=== PATIENT | male | born 1965 | race Caucasian/White ===

== ENCOUNTER 2018-01-01 21:16 | Observation (INO) | payer BC, OTHER ==
[~2018-01-01] VITALS: Ht 177.8 cm; Wt 67.1 kg
[2018-01-01] MEDS ORDERED: ATOR40TA24 PO (21:30)
[2018-01-01] MEDS ORDERED: HYDR-2966 PO (21:30)
[2018-01-01] MEDS ORDERED: ASPI-1471 PO (21:30)
[2018-01-01] MEDS ORDERED: CAR6.25 PO (21:30)
--- NOTE | 2018-01-01 21:36 | ER Report ---
History and Physical Time Seen By MD: 21:36 Hx. of Stated Complaint: SUDDEN ONSET OF UPPER RIGHT ABDOMINAL PAIN. SHOOTS AROUND TO HIS BACKSODE. FEELS HARD WHEN HE PUSHES ON IT HPI/ROS CHIEF COMPLAINT: right upper quadrant abdominal pain HISTORY OF PRESENT ILLNESS: This is a 52 year old male. He has right upper quadrant abdominal pain. sudden onset tonight. Pain worsens with pressure, and with deep breaths. Sometimes with deep breaths he feels it in his right flank. No dysuria or problems with urination. No other abdominal pain. No fever or chills noted. Mild nausea, no vomiting. No history of liver or gallbladder problems. He does have history of coronary artery disease. Allergies: Coded Allergies: No Known Drug Allergies (Verified , 01/01/18) Home Meds Reported Medications Aspirin (ASPIRIN) 325 Mg Tablet, 325 MG PO Q4-6H PRN for PAIN, TAB 01/02/18 Atorvastatin Calcium (LIPITOR) 40 Mg Tablet, 2 TAB PO QDAY, TAB 01/01/18 Carvedilol (CARVEDILOL) 6.25 Mg Tab, 6.25 MG PO BID, TAB 01/01/18 Discontinued Reported Medications Hydrochlorothiazide (HYDROCHLOROTHIAZIDE) 25 Mg Tablet, 1 TAB PO QDAY, TAB 01/01/18 Aspirin (ASPIR 81) 81 Mg Tablet.dr, 81 MG PO QDAY, TAB 01/01/18 [None] No Conflict Check, 0 Refills 09/01/08 Reviewed Nurses Notes: Yes Hx Substance Use Disorder: No Hx Alcohol Use: Yes (SOCIALLY) Constitutional Vital Sign - Last 24 Hours 01/01/18 01/01/18 01/01/18 01/01/18 21:24 21:26 21:30 21:31 Temp 97.4 Pulse 62 76 Resp 14 B/P (MAP) 170/119 170/119 (136) 181/129 (146) Pulse Ox 98 99 O2 Delivery Room Air 01/01/18 01/01/18 01/01/18 01/01/18 21:32 21:46 22:00 22:01 Pulse 65 64 B/P (MAP) 169/111 (130) 136/94 (108) Pulse Ox 99 91 01/01/18 01/01/18 01/01/18 01/01/18 22:16 22:30 22:31 22:46 Pulse 73 58 63 B/P (MAP) 126/90 (102) Pulse Ox 99 98 98 01/01/18 01/01/18 01/01/18 01/01/18 22:51 23:00 23:21 23:30 Pulse 63 59 B/P (MAP) 124/89 (101) 115/89 (98) Pulse Ox 98 97 01/01/18 01/02/18 01/02/18 01/02/18 23:51 00:00 00:05 00:30 Pulse 64 61 B/P (MAP) 123/88 (100) 119/89 (99) Pulse Ox 98 98 Physical Exam General Appearance: The patient is alert. Some distress with pressure in ruq, but otherwise no distress. Eyes: Pupils are equal, round. No pallor, injection or icterus. ENT: Mucous membranes are moist. Normal oral mucosa. Normal posterior oropharynx. Respiratory: Lungs are clear to auscultation. Cardiovascular: Regular rate and rhythm. No murmurs, gallops or rubs. Normal capillary refill. Gastrointestinal: Abdomen is very tender in the ruq with positive Torres sign. Nondistended. Guarding. Normal active bowel sounds. No costovertebral angle tenderness with percussion. Neurological: Alert and oriented x3. Skin: Warm and dry. No rashes. Musculoskeletal: No tenderness in palpation of the back and spine. DIFFERENTIAL DIAGNOSIS: After history and physical exam, differential diagnosis was considered for abdominal pain including but not limited to appendicitis, cholecystitis, colitis and urinary tract infection. Medical Decision Making Data Points Result Diagram: 01/01/18213601/01/182136 Laboratory Hematology Test 01/01/18 21:37 Red Blood Count 5.81 M/uL (4.00-5.60) Mean Corpuscular Volume 102.9 fL (80.0-96.0) Mean Corpuscular Hemoglobin 35.9 pg (26.0-33.0) Mean Corpuscular Hemoglobin Concent 34.9 g/dL (32.0-36.0) Red Cell Distribution Width 14.9 % (11.5-14.5) Mean Platelet Volume 9.6 fL (7.2-11.1) Neutrophils (%) (Auto) 63.0 % (39.4-72.5) Lymphocytes (%) (Auto) 25.0 % (17.6-49.6) Monocytes (%) (Auto) 8.7 % (4.1-12.4) Eosinophils (%) (Auto) 2.3 % (0.4-6.7) Basophils (%) (Auto) 1.0 % (0.3-1.4) Nucleated RBC Relative Count (auto) 0.1 /100WBC Neutrophils # (Auto) 5.2 K/uL (2.0-7.4) Lymphocytes # (Auto) 2.1 K/uL (1.3-3.6) Monocytes # (Auto) 0.7 K/uL (0.3-1.0) Eosinophils # (Auto) 0.2 K/uL (0.0-0.5) Basophils # (Auto) 0.1 K/uL (0.0-0.1) Nucleated RBC Absolute Count (auto) 0.01 K/uL Urine Color Yellow Urine Clarity Clear Urine pH 5.0 pH (4.8-9.5) Urine Specific [place] 1.018 Urine Protein Negative mg/dL (NEGATIVE) Urine Glucose (UA) Negative mg/dL (NEGATIVE) Urine Ketones Negative mg/dL (NEGATIVE) Urine Blood Negative (NEGATIVE) Urine Nitrite Negative (NEGATIVE) Urine Bilirubin Negative (NEGATIVE) Urine Urobilinogen 4.0 mg/dL (0.2-1.9) Urine Leukocyte Esterase Negative (NEGATIVE) Urine RBC None /HPF (0-2/HPF) Urine WBC <1 /HPF (0-5/HPF) Urine Squamous Epithelial Cells Few /LPF (</=FEW) Urine Transitional Epithelial Cells Few /LPF (NONE-FEW) Urine Calcium Oxalate Crystals Few /HPF (NONE) Urine Bacteria Negative /HPF (NONE-FEW) Urine Hyaline Casts Few /LPF (NONE-FEW) Urine Mucus None /HPF (NONE-FEW) Sodium Level 145 mmol/L (137-145) Potassium Level 3.2 mmol/L (3.5-5.0) Chloride Level 110 mmol/L (98-107) Carbon Dioxide Level 25 mmol/L (22-30) Blood Urea Nitrogen 8 mg/dl (9-21) Creatinine 0.60 mg/dl (0.66-1.25) Glomerular Filtration Rate Calc > 60.0 Random Glucose 114 mg/dl (75-110) Calcium Level 8.3 mg/dl (8.4-10.2) Total Bilirubin 0.5 mg/dl (0.2-1.3) Aspartate Amino Transf (AST/SGOT) 70 U/L (0-35) Alanine Aminotransferase (ALT/SGPT) 46 U/L (0-56) Alkaline Phosphatase 89 U/L (0-126) Troponin I < 0.012 ng/ml C-Reactive Protein 0.9 mg/dl (<1.0) Total Protein 7.2 g/dl (6.3-8.2) Albumin 3.8 g/dl (3.5-5.0) Amylase Level 111 U/L (0-110) Lipase 250 U/L (23-300) Chemistry Test 01/01/18 21:37 White Blood Count 8.3 k/uL (4.5-11.0) Red Blood Count 5.81 M/uL (4.00-5.60) Hemoglobin 20.9 g/dL (14.0-18.0) Hematocrit 59.8 % (42.0-52.0) Mean Corpuscular Volume 102.9 fL (80.0-96.0) Mean Corpuscular Hemoglobin 35.9 pg (26.0-33.0) Mean Corpuscular Hemoglobin Concent 34.9 g/dL (32.0-36.0) Red Cell Distribution Width 14.9 % (11.5-14.5) Platelet Count 112 K/uL (150-450) Mean Platelet Volume 9.6 fL (7.2-11.1) Neutrophils (%) (Auto) 63.0 % (39.4-72.5) Lymphocytes (%) (Auto) 25.0 % (17.6-49.6) Monocytes (%) (Auto) 8.7 % (4.1-12.4) Eosinophils (%) (Auto) 2.3 % (0.4-6.7) Basophils (%) (Auto) 1.0 % (0.3-1.4) Nucleated RBC Relative Count (auto) 0.1 /100WBC Neutrophils # (Auto) 5.2 K/uL (2.0-7.4) Lymphocytes # (Auto) 2.1 K/uL (1.3-3.6) Monocytes # (Auto) 0.7 K/uL (0.3-1.0) Eosinophils # (Auto) 0.2 K/uL (0.0-0.5) Basophils # (Auto) 0.1 K/uL (0.0-0.1) Nucleated RBC Absolute Count (auto) 0.01 K/uL Urine Color Yellow Urine Clarity Clear Urine pH 5.0 pH (4.8-9.5) Urine Specific [place] 1.018 Urine Protein Negative mg/dL (NEGATIVE) Urine Glucose (UA) Negative mg/dL (NEGATIVE) Urine Ketones Negative mg/dL (NEGATIVE) Urine Blood Negative (NEGATIVE) Urine Nitrite Negative (NEGATIVE) Urine Bilirubin Negative (NEGATIVE) Urine Urobilinogen 4.0 mg/dL (0.2-1.9) Urine Leukocyte Esterase Negative (NEGATIVE) Urine RBC None /HPF (0-2/HPF) Urine WBC <1 /HPF (0-5/HPF) Urine Squamous Epithelial Cells Few /LPF (</=FEW) Urine Transitional Epithelial Cells Few /LPF (NONE-FEW) Urine Calcium Oxalate Crystals Few /HPF (NONE) Urine Bacteria Negative /HPF (NONE-FEW) Urine Hyaline Casts Few /LPF (NONE-FEW) Urine Mucus None /HPF (NONE-FEW) Glomerular Filtration Rate Calc > 60.0 Calcium Level 8.3 mg/dl (8.4-10.2) Total Bilirubin 0.5 mg/dl (0.2-1.3) Aspartate Amino Transf (AST/SGOT) 70 U/L (0-35) Alanine Aminotransferase (ALT/SGPT) 46 U/L (0-56) Alkaline Phosphatase 89 U/L (0-126) Troponin I < 0.012 ng/ml C-Reactive Protein 0.9 mg/dl (<1.0) Total Protein 7.2 g/dl (6.3-8.2) Albumin 3.8 g/dl (3.5-5.0) Amylase Level 111 U/L (0-110) Lipase 250 U/L (23-300) Urinalysis Test 01/01/18 21:37 Urine Color Yellow Urine Clarity Clear Urine pH 5.0 pH (4.8-9.5) Urine Specific [place] 1.018 Urine Protein Negative mg/dL (NEGATIVE) Urine Glucose (UA) Negative mg/dL (NEGATIVE) Urine Ketones Negative mg/dL (NEGATIVE) Urine Blood Negative (NEGATIVE) Urine Nitrite Negative (NEGATIVE) Urine Bilirubin Negative (NEGATIVE) Urine Urobilinogen 4.0 mg/dL (0.2-1.9) Urine Leukocyte Esterase Negative (NEGATIVE) Urine RBC None /HPF (0-2/HPF) Urine WBC <1 /HPF (0-5/HPF) Urine Squamous Epithelial Cells Few /LPF (</=FEW) Urine Transitional Epithelial Cells Few /LPF (NONE-FEW) Urine Calcium Oxalate Crystals Few /HPF (NONE) Urine Bacteria Negative /HPF (NONE-FEW) Urine Hyaline Casts Few /LPF (NONE-FEW) Urine Mucus None /HPF (NONE-FEW) EKG/Imaging EKG Interpretation 12 lead EKG: Rhythm: Sinus rhythm, occasional PVC, rate 63 [place]: normal QRS: Incomplete right bundle, left anterior fascicular. Q waves in inferior leads consistent with old inferior infarct ST segments: T waves flattening, no ST elevation or depression noted Imaging AP CHEST 01/01/2018 9:44 PM. INDICATION: Right upper quadrant abdominal pain. COMPARISON: 09/01/2008. FINDINGS: Lungs are well-expanded. There is no consolidation. No pleural effusion or pneumothorax. Heart size is normal. Median sternotomy closure and multiple surgical clips over the cardiomediastinal silhouette likely related to CABG. Imaged upper abdomen is unremarkable. IMPRESSION: No acute abnormality. Report Dictated By: Saúl Cassidy MD at 01/01/2018 10:34 PM EXAMINATION: LIMITED ABDOMINAL ULTRASOUND DATE: 01/01/2018 10:45 PM INDICATION: Right upper quadrant abdominal pain. TECHNIQUE: Ryan scale, color and pulsed Doppler ultrasound images of the right upper quadrant were obtained. COMPARISON: Same-day chest radiograph. FINDINGS: Pancreas: The pancreas is suboptimally visualized in the tail. There is no significant abnormality in the visualized portion. Aorta and IVC: The imaged abdominal aorta and IVC are patent. Liver: The liver shows diffusely mildly increased echogenicity with coarsened echotexture. The right hepatic lobe measures 18 cm craniocaudal, which is mildly enlarged. There is no definite focal lesion in the liver. The main portal vein is patent with hepatopedal flow. Bile ducts: The intrahepatic bile ducts are not dilated. The common bile duct measures 5 mm in diameter, which is normal. Gallbladder: The gall bladder is distended contains a level echogenic sludge. There is also an echogenic focus in the gallbladder that appears to be fixed in position and does not demonstrate clear posterior shadowing. Gallbladder wall is not grossly thickened and there is no pericholecystic fluid. Sonographic Torres's sign is reported positive. Kidney: The right kidney measures 11.9 x 5.0 x 4.6 cm. The parenchymal echog enicity and thickness appear within normal range. No focal lesion is demonstrated. No hydronephrosis. Normal low resistance arterial waveform. No ascites. IMPRESSION: 1. Distended gallbladder containing sludge and an echogenic focus that could represent a polyp or biliary sludge. Reported sonographic Torres's sign with no definite gallbladder wall thickening or pericholecystic fluid. Equivocal examination for cholecystitis. Consider HIDA scan if indicated. 2. Consider one year follow-up to assess the stability of potential gallbladder polyp. 3. Mild hepatomegaly and suspected steatosis. Report Dictated By: Saúl Cassidy MD at 01/01/2018 11:45 PM ED Course/Re-evaluation ED Course Labs with a normal white count. Patient is afebrile. Still with right upper quadrant pain but improved with Dilaudid 1 mg IV. Ultrasound obtained and the patient does have sludge with reproducible pain, positive Torres sign. Discussed the case with Dr. Ramírez, patient will be admitted for pain control and discussion regarding surgery tomorrow for cholecystectomy Decision to Disposition Date: Jan 02, 2018 Decision to Disposition Time: 00:11 Depart Departure Latest Vital Signs Vital Signs Date Time Temp Pulse Resp B/P (MAP) Pulse Ox O2 Delivery O2 Flow Rate FiO2 01/02/18 00:30 119/89 (99) 01/02/18 00:05 61 98 01/01/18 21:24 97.4 14 Room Air Impression: Primary Impression: Cholelithiasis Condition: Improved Disposition: Admitted from ER Problem Qualifiers Primary Impression: Cholelithiasis Cholelithiasis location: gallbladder Cholecystitis presence: without cholecystitis Biliary obstruction: without biliary obstruction Qualified Codes: K80.20 - Calculus of gallbladder without cholecystitis without obstruction PANCHO LINDSEY MD Jan 01, 2018 21:36
[2018-01-01] MEDS ORDERED: NS(*) 0.9% 1000 ML BAG 1,000 ML IV ONE (21:44)
[2018-01-01] MEDS ORDERED: HYDROMORPHONE HCL 1 MG/ML SYRINGE IVP ONE (21:45)
[2018-01-01] MEDS ORDERED: ONDANSETRON 4 MG/2 ML VIAL IVP ONE (21:45)
[2018-01-01 21:58] LABS: PLATELET COUNT, AUTOMATED 112 K/uL (150-450)
--- NOTE | 2018-01-01 22:39 | RADIOLOGY IMAGING REPORT ---
FACILITY: [facility] PATIENT NAME: Tarik Garcia : 1965 MR: [id number] V: [id number] EXAM DATE: ORDERING PHYSICIAN: PANCHO LINDSEY TECHNOLOGIST: Location: [facility] [place] Patient: Tarik Garcia : 1965 Visit/Account:[id number] Date of Sevice: 01/01/2018 AP CHEST 01/01/2018 9:44 PM. INDICATION: Right upper quadrant abdominal pain. COMPARISON: 09/01/2008. FINDINGS: Lungs are well-expanded. There is no consolidation. No pleural effusion or pneumothorax. Heart size i s normal. Median sternotomy closure and multiple surgical clips over the cardiomediastinal silhouett e likely related to CABG. Imaged upper abdomen is unremarkable. IMPRESSION: No acute abnormality. Report Dictated By: Saúl Cassidy MD at 01/01/2018 10:34 PM Report E-Signed By: Saúl Cassidy MD at 01/01/2018 10:35 PM WSN:[id number]
--- NOTE | 2018-01-01 22:49 | EKG ---
FACILITY: [facility] PATIENT NAME: ISMA DEVLIN : [id number] MR: [id number] V: [id number] EXAM DATE: ORDERING PHYSICIAN: PANCHO LINDSEY TECHNOLOGIST: LENARD Ricketts Reason : Blood Pressure : / mmHG Vent. Rate : 063 BPM Atrial Rate : 063 BPM P-R Int : 160 ms QRS Dur : 104 ms QT Int : 398 ms P-R-T Axes : 051 -70 066 degrees QTc Int : 407 ms Sinus rhythm with occasional premature ventricular complexes Possible Left atrial enlargement Left axis deviation Possible previous inferior infarct Diffuse T wave flattening/inversion Abnormal ECG No previous ECGs available Confirmed by KVNG PICKENS ([id number]) on 01/02/2018 6:42:36 AM Referred By: Confirmed By:KVNG PICKENS
--- NOTE | 2018-01-01 23:55 | RADIOLOGY IMAGING REPORT ---
FACILITY: [facility] PATIENT NAME: Tarik Garcia : 1965 MR: [id number] V: [id number] EXAM DATE: [id number] ORDERING PHYSICIAN: PANCHO LINDSEY TECHNOLOGIST: Location: [facility] Patient: Tarik Garcia : 1965 Visit/Account:[id number] Date of Sevice: 01/01/2018 EXAMINATION: LIMITED ABDOMINAL ULTRASOUND DATE: 01/01/2018 10:45 PM INDICATION: Right upper quadrant abdominal pain. TECHNIQUE: Ryan scale, color and pulsed Doppler ultrasound images of the right upper quadrant were ob tained. COMPARISON: Same-day chest radiograph. FINDINGS: Pancreas: The pancreas is suboptimally visualized in the tail. There is no significant abnormality in the visualized portion. Aorta and IVC: The imaged abdominal aorta and IVC are patent. Liver: The liver shows diffusely mildly increased echogenicity with coarsened echotexture. The right hepatic lobe measures 18 cm craniocaudal, which is mildly enlarged. There is no definite focal lesion in the liver. The main portal vein is patent with hepatopedal flow. Bile ducts: The intrahepatic bile ducts are not dilated. The common bile duct measures 5 mm in diamet er, which is normal. Gallbladder: The gall bladder is distended contains a level echogenic sludge. There is also an echog enic focus in the gallbladder that appears to be fixed in position and does not demonstrate clear pos terior shadowing. Gallbladder wall is not grossly thickened and there is no pericholecystic fluid. Sonographic Torres's sign is reported positive. Kidney: The right kidney measures 11.9 x 5.0 x 4.6 cm. The parenchymal echogenicity and thickness jaswant ear within normal range. No focal lesion is demonstrated. No hydronephrosis. Normal low resistance a rterial waveform. No ascites. IMPRESSION: 1. Distended gallbladder containing sludge and an echogenic focus that could represent a polyp or bi liary sludge. Reported sonographic Torres's sign with no definite gallbladder wall thickening or per icholecystic fluid. Equivocal examination for cholecystitis. Consider HIDA scan if indicated. 2. Consider one year follow-up to assess the stability of potential gallbladder polyp. 3. Mild hepatomegaly and suspected steatosis. Report Dictated By: Saúl Cassidy MD at 01/01/2018 11:45 PM Report E-Signed By: Saúl Cassidy MD at 01/01/2018 11:51 PM WSN:[id number]
[2018-01-02] VITALS (13 sets, daily range): BP systolic 129–153; BP diastolic 68–110; Ht 177.8 cm; Wt 67.1 kg
[2018-01-02] MEDS ORDERED: ASPI-757 PO (01:35)
[2018-01-02] MEDS ORDERED: ONDANSETRON 4 MG/2 ML VIAL IVP PRN ×2 (01:50→11:50)
[2018-01-02] MEDS ORDERED: NS(*) 0.9% 1000 ML BAG 1,000 ML IV PRN ×2 (01:50→11:50)
[2018-01-02] MEDS: HYDROmorphone HCL 2 MG/ML SDV IVP PRN ×2 (02:20→08:14)
[2018-01-02] MEDS: AMPICILLIN/SULBACT (*) 3 GM VL 3 GM in NS(*) 0.9% 100 ML BAG 100 ML IVPB SCH ×4 (02:55→20:02)
[2018-01-02] MEDS ORDERED: fentaNYL CITR 250 MCG/5 ML AMP ONE ×2 (07:32→07:33)
[2018-01-02] MEDS ORDERED: LIDOCAINE 2% IV 100 MG/5ML SYR ONE (07:33)
[2018-01-02] MEDS ORDERED: PROPOFOL EMUL(*) 10MG/ML 20 ML 20 ML ONE (07:34)
--- NOTE | 2018-01-02 07:56 | Gen Surgery History & Physical ---
History of Present Illness Chief Complaint RUQ abdominal pain History of Present Illness 52yo male presents to the ER with RUQ abdominal pain that started at 1999 last evening. No previous h/o this symptom. No N/V. No diarrhea or constipation. No F/C. No jaundice, choleuria, or steatorrhea. RUQ U/S in ER reveals a distended gallbladder with sludge and an echogenic focus in the gallbladder. I was contacted and he was recommended to be admitted due to unremitting RUQ abdominal pain. History Problems: (1) HTN (hypertension) Status: Chronic (2) CAD (coronary artery disease) Status: Chronic (3) Hyperlipidemia Status: Chronic (4) History of coronary artery bypass graft Status: Chronic Home Meds Reported Medications Aspirin (ASPIRIN) 325 Mg Tablet, 325 MG PO Q4-6H PRN for PAIN, TAB 01/02/18 Atorvastatin Calcium (LIPITOR) 40 Mg Tablet, 2 TAB PO QDAY, TAB 01/01/18 Carvedilol (CARVEDILOL) 6.25 Mg Tab, 6.25 MG PO BID, TAB 01/01/18 Discontinued Reported Medications Hydrochlorothiazide (HYDROCHLOROTHIAZIDE) 25 Mg Tablet, 1 TAB PO QDAY, TAB 01/01/18 Aspirin (ASPIR 81) 81 Mg Tablet.dr, 81 MG PO QDAY, TAB 01/01/18 [None] No Conflict Check, 0 Refills 09/01/08 Allergies: Coded Allergies: No Known Drug Allergies (Verified , 01/01/18) Patient History: Cardiac disorder in father FATHER Review of Systems All Systems Reviewed/Normal: Yes, Except as Noted Gastrointestinal: Abdominal Pain Exam General Appearance: Alert, Awake, No Acute Distress, Afebrile Neuro: No Gross deficits Eyes: PERRLA Cardiovascular: Regular Rate and Rhythm Respiratory: Clear to Auscultation GI: Other (Soft, RUQ TTP, Positive Torres's sign) Extremities: Warm, Perfused Medical Decision Making Data Points Result Diagram: 01/01/18213601/01/182136 Assessment and Plan Problems: (1) Cholecystitis Status: Acute Assessment & Plan: 01/02/18: Pt with continuous RUQ abdominal pain suspicious for cholecystitis. Will admit, NPO, IV fluids, IV abx, to OR this morning for lap yolanda. I have explained this plan to the patient as well as the alternatives, risks, and expected recovery. He indicates his understanding of this discussion and his questions have been answered. He would like to proceed with this plan including surgery. Will give him his beta liana this morning for perioperative cardiac protection. (2) CAD (coronary artery disease) Status: Chronic Assessment & Plan: Treated with CABG several years ago, now asymptomatic without angina, SOB, JONES, in this active patient. Condition Stable. Time Spent: < 30 min Venous Thromboembolism VTE Risk Physician Assess for VTE Risk: Yes Patient's VTE Risk: Low VTE Diagnostic Test 2 Days Prior to Admit: No Antithrombotics Is Pt On Any Antithrombotics?: No Problem Qualifiers (1) CAD (coronary artery disease): Coronary Disease-Associated Artery/Lesion type: [place] artery [place] vs. transplanted heart: [place] heart Associated angina: without angina Qualified Codes: I25.10 - Atherosclerotic heart disease of [place] coronary artery without angina pectoris TNIG SORTO MD Jan 02, 2018 07:56
[2018-01-02] MEDS: CARVEDILOL 6.25 MG TAB PO SCH ×2 (08:13→22:00)
[2018-01-02] MEDS ORDERED: NORMOSOL R SOLN(*) 1000 ML BAG 1,000 ML IV ONE (09:14)
[2018-01-02] MEDS ORDERED: FAMOTIDINE(*) 20MG/50ML PREMIX 50 ML IVPB ONE (09:21)
[2018-01-02] MEDS ORDERED: ROPIVACAINE 0.5% 20 ML VIAL ONE (09:29)
[2018-01-02] MEDS ORDERED: IOPAMIDOL 61% 75 ML INFUS BTL 75 ML ONE (09:29)
[2018-01-02] MEDS ORDERED: LIDOCAINE/SOD BICARB 8.4% SYR ID ONE (10:05)
[2018-01-02] MEDS ORDERED: ONDANSETRON 4 MG/2 ML VIAL ONE (10:21)
[2018-01-02] MEDS ORDERED: DEXAMETHASONE SOD 4 MG/ML VIAL ONE (10:21)
[2018-01-02] MEDS ORDERED: ROCURONIUM BROM 10 MG/ML 5 ML ONE (10:30)
[2018-01-02] MEDS ORDERED: SUGAMMADEX SOD 200 MG/2 ML SDV ONE (10:34)
[2018-01-02] MEDS ORDERED: fentaNYL CITR 100 MCG/2 ML AMP ONE (11:00)
[2018-01-02] MEDS ORDERED: KETOROLAC 30 MG/ML VIAL ONE (11:07)
[2018-01-02] MEDS ORDERED: FLUSH 10 ML SYR IVP PRN (11:50)
[2018-01-02] MEDS ORDERED: PROMETHAZINE 25 MG/ML 1 ML AMP IVP PRN (11:50)
[2018-01-02] MEDS ORDERED: HYDROmorphone HCL 2 MG/ML SDV IVP PRN (11:55)
--- NOTE | 2018-01-02 12:01 | Post Operative Progress Note ---
Post Operative Progress Note Date: Jan 02, 2018 Time: 11:55 Surgeon: Pk Dictation number: [id number] Anesthesia: GETA by Dr. Vegas Pre-Op Diagnosis: Cholecystitis Post-Op Diagnosis: CASSANDRA Findings: Stone obstructing cystic duct, removed, IOC normal Procedure(s): Lap yolanda with gram Specimen Removed:(May be N/A): GB and contents Complications: None Fluids: See anesthesia record Estimated Blood Loss: Minimal Date OP Note Dictated: Jan 02, 2018 Time OP Note Dictated: 11:56 TING SORTO MD Jan 02, 2018 12:01
--- NOTE | 2018-01-02 13:28 | RADIOLOGY IMAGING REPORT ---
FACILITY: [facility] - [place] PATIENT NAME: Tarik Garcia : 1965 MR: [id number] V: [id number] EXAM DATE: ORDERING PHYSICIAN: TING SORTO TECHNOLOGIST: Location: [facility] [place] Patient: Tarik Garcia : 1965 Visit/Account:[id number] Date of Sevice: 01/02/2018 Intraoperative cholangiogram: HISTORY: Cholecystectomy. COMPARISON: 01/01/2018 FINDINGS: Fluoroscopy and imaging provided for Dr. Sorto. 17.5 seconds of fluoroscopy time was uti lized for a cumulative dose of 0.131 mGym2. Multiple images are archived to PACS. Contrast has been injected via the cystic duct stump. Common bile duct is of normal caliber. There are no filling de fects. Visualized intrahepatic ducts are within normal limits. Contrast is present in the duodenum. IMPRESSION: Fluoroscopy and imaging provided for Dr. Sorto, please see his report for details. Report Dictated By: Kika Renteria MD at 01/02/2018 1:22 PM Report E-Signed By: Kika Renteria MD at 01/02/2018 1:23 PM WSN:[id number]
--- NOTE | 2018-01-02 13:31 | ULLRICH LAP CHOLE ---
EVENT DATE: January 02, 2018 SURGEON: Naman Whittington MD ANESTHESIOLOGIST: Huy Vegas M.D. ANESTHESIA: General Endotracheal PREOPERATIVE DIAGNOSIS Acute cholecystitis. POSTOPERATIVE DIAGNOSIS Acute cholecystitis. PROCEDURE PERFORMED Laparoscopic cholecystectomy with intraoperative cholangiogram. COMPLICATIONS None. CONDITION Stable. ESTIMATED BLOOD LOSS Minimal. FINDINGS This patient had a stone obstructing the cystic duct, which when I performed the ductotomy for the cholangiogram I removed the stone from the cystic duct. The cholangiogram was otherwise normal. I did not see any other filling defects in the common duct system. INDICATIONS This is a 52-year-old gentleman who presented to our emergency room last night with right upper quadrant abdominal pain that unremitting. Because it was unremitting, he was admitted for pain control and consented for cholecystectomy. DESCRIPTION OF PROCEDURE The patient was taken into the operating room and placed supine on the operating table. General endotracheal anesthesia was administered and the entire abdomen was prepped and draped in a sterile fashion. A time-out was completed. I injected the injected the infraumbilical skin with 0.5% ropivacaine plain and made a curvilinear, smiley face type incision up to the infraumbilical rim and dissected through the dermis and subcutaneous fat. I identified the midline fascia. I made a vertical incision in the midline fascia. I grasped the fascia with Zbigniew clamps and retracted the fascia towards the ceiling to move the abdominal wall away from the underlying viscera as I penetrated the peritoneal cavity with my finger. I then placed two interrupted 0 Vicryl sutures transversely through the vertical fascia defect and inserted a 12 mm Dave type port through this incision and secured into place with sutures. I insufflated the abdomen to a pressure of 15 mmHg and inserted the 5 mm, 30-degree angle scope through this port. Gross inspection of the abdominal cavity did not reveal any obvious evidence of pathology or entry related injuries. Under direct visualization, I placed a 5 mm port in the epigastric midline and two femora ports in the right upper quadrant. The patient was placed in reverse Trendelenburg and planed towards his left to remove viscera from the right upper quadrant. The fundus of the gallbladder was retracted towards the patient's right shoulder and the infundibulum was retracted towards the patient's right hip. There were some wispy adhesions between the duodenum and the infundibulum, which were taken down with hook electrocautery using traction and countertraction. I then divided the peritoneum overlying the infundibulum up the medial and lateral aspects of the gallbladder and stripped this down as well as dissecting through the subperitoneal fat. I identified a large cystic artery that was actually anterior to the duct and cleaned this off and clipped it proximally and distally and divided between clips. I then identified the cystic duct and cleaned this off circumferentially and placed the duct at the infundibular cystic duct junction and made a ductotomy just distal to the clip and then milked the duct from distal to proximal. I did feel a stone in the cystic duct, which I milked back to the ductotomy and was able to remove from the patient's abdomen using the sucker. After this, I did not detect anymore solid contents in the cystic duct so cholangiogram was completed. I did identify that I was in the cystic duct well away from the common duct structures and then I went to contrast flow through the common bile duct into the duodenum and I also identified the common hepatic duct and the intrahepatic biliary system. There were no further filling defects and contrast flowed into the duodenum without any problems. I removed the cholangiocatheter and placed three clips across the cystic duct and divided the duct between the clips. I then divided the posterior attachments to the gallbladder separate from the gallbladder fossa and placed the gallbladder in a surgical specimen retrieval bag and removed from the abdomen through the umbilical port site. I then irrigated and dried the right upper quadrant and there was a small amount of oozing from divided omentum that had been adhesed to the infundibulum so I grasped this with a [place] then placed two clips on this and made it hemostatic. I then grasped the cystic duct and placed a single Vicryl Endoloop around this to ensure this did not leak. I then placed some Gold up in the right upper quadrant, the gallbladder fossa and over the omentum to prevent ongoing bleeding as this patient was on full strength aspirin. I removed all the irrigation fluid from the right upper quadrant, removed all the instruments, desufflated the abdomen, removed the ports and then placed a [id number] 0 Vicryl suture transversely through the vertical fascial defect and tied all three of these down with good reapproximation of the fascial edges. I then closed the skin at each port site with 4-0 Monocryl subcuticular sutures. Skin was cleaned and dried and steri-strips applied followed by sterile surgical dressings. The patient was awakened and extubated in the operating room and transported to the recovery room in stable condition having tolerated the procedure without problems. BECCA
[2018-01-02] MEDS: FAMOTIDINE 20 MG TAB PO SCH (22:00)
[2018-01-02] MEDS: DOCUSATE SODIUM 100 MG CAP PO SCH (22:00)
[2018-01-03] MEDS: AMPICILLIN/SULBACT (*) 3 GM VL 3 GM in NS(*) 0.9% 100 ML BAG 100 ML IVPB SCH ×2 (03:19→08:07)
[2018-01-03 03:20] VITALS: BP 119/88
[2018-01-03] MEDS ORDERED: PER PO ×2 (07:03→17:13)
[2018-01-03] MEDS ORDERED: DOCU-202 PO (07:03)
--- NOTE | 2018-01-03 07:06 | Short(Outpt) Discharge Summary ---
Discharge Summary Reason for Hosp/Final Diag: (1) Cholecystitis Status: Acute Hospital Course & Plan: 01/02/18: Pt with continuous RUQ abdominal pain suspicious for cholecystitis. Will admit, NPO, IV fluids, IV abx, to OR this morning for lap yolanda. I have explained this plan to the patient as well as the alternatives, risks, and expected recovery. He indicates his understanding of this discussion and his questions have been answered. He would like to proceed with this plan including surgery. Will give him his beta liana this morning for perioperative cardiac protection. 01/03/18: POD#1 s/p lap yolanda with gram. Doing well. No issues overnight. Will d/c to home this morning. (2) CAD (coronary artery disease) Status: Chronic Hospital Course & Plan: Treated with CABG several years ago, now asymptomatic without angina, SOB, JONES, in this active patient. Departure Discharge to: Home, Self Care Discharge Instructions Home Meds Active Scripts Oxycodone/Acetaminophen (OXYCODONE/ACETAMINOPHEN 5MG/325 MG) 5 Mg/325 Mg Tab, 1- 2 TAB PO Q4H PRN for MODERATE PAIN, #30 TAB 0 Refills Prov:TING SORTO MD 01/03/18 Docusate Sodium (DOCUSATE SODIUM) 100 Mg Capsule, 1 CAP PO BID, #30 CAPSULE 0 Refills Prov:TING SORTO MD 01/03/18 Reported Medications Aspirin (ASPIRIN) 325 Mg Tablet, 325 MG PO Q4-6H PRN for PAIN, TAB 01/02/18 Atorvastatin Calcium (LIPITOR) 40 Mg Tablet, 2 TAB PO QDAY, TAB 01/01/18 Carvedilol (CARVEDILOL) 6.25 Mg Tab, 6.25 MG PO BID, TAB 01/01/18 Discontinued Reported Medications Hydrochlorothiazide (HYDROCHLOROTHIAZIDE) 25 Mg Tablet, 1 TAB PO QDAY, TAB 01/01/18 Aspirin (ASPIR 81) 81 Mg Tablet.dr 81 MG PO QDAY, TAB 01/01/18 [None] No Conflict Check, 0 Refills 09/01/08 Follow up Referrals: General Surgery - 01/16/18 @ Surgery, General with TING SORTO MD You have a follow up appointment scheduled with Dr. Sorto on 01/16/18, at 3:30pm. Diet: Regular Activity: As Tolerated Special Instructions: You may remove the white surgical dressings on 01/04/18, then you can shower. After showering, leave the incisions open to air but leave the steristrips in place until they fall off on their own. Do not immerse the incisions for 2 weeks. Problem Qualifiers (1) CAD (coronary artery disease): Coronary Disease-Associated Artery/Lesion type: [place] artery [place] vs. transplanted heart: [place] heart Associated angina: without angina Qualified Codes: I25.10 - Atherosclerotic heart disease of [place] coronary artery without angina pectoris TING SORTO MD Jan 03, 2018 07:06
[2018-01-03 08:10] VITALS: BP 132/103
[2018-01-03] MEDS: FAMOTIDINE 20 MG TAB PO SCH (08:15)
[2018-01-03] MEDS: DOCUSATE SODIUM 100 MG CAP PO SCH (08:15)
[2018-01-03] MEDS: CARVEDILOL 6.25 MG TAB PO SCH (08:15)
[2018-01-03] MEDS ORDERED: ATORVASTATIN 40 MG TAB PO SCH (09:00)
[2018-01-03] MEDS ORDERED: OXYC-854 PO (17:14)
== END 2018-01-03 06:59 | disposition home or self-care (01) ==
LOC: ER 21:24 → MED 01-02 00:30 → INTOOBSV 01-02 00:30
PROVIDERS: ADMIT Surgery; ATTEND Surgery
DX: K80.20 Calculus of gallbladder without cholecystitis without obstruction (principal)
CPT/HCPCS: 47563; 71045; 74300; 76705; 81001; 82150; 83690; 84484; 85025; 86140; 88304; 93005; 96361; 96374; 96375; 99285; G0378; J0295; J1100; J1170; J2001; J2405; J2704; J2795; J3010; J3490; J7030; J7050; Q9967; 82040; 82247; 82310; 82374; 82435; 82565; 82947; 84075; 84132; 84155; 84295; 84450; 84460; 84520; J1885

== ENCOUNTER → 2018-03-08 | Outpatient (CLI) | payer OTHER ==
[2018-01-02 10:17] VITALS: BMI 21.2
[~2018-03-08] MED LIST: ASPI-1471 PO; ASPI-757 PO; ATOR40TA24 PO; CAR6.25 PO; DOCU-202 PO; HYDR-2966 PO; OXYC-854 PO; PER PO
== END ==
LOC: LAB 12:27
PROVIDERS: ATTEND Internal Medicine Cardiovascular Disease
DX: I25.10 Atherosclerotic heart disease of native coronary artery without angina pectoris (principal); E78.00 Pure hypercholesterolemia, unspecified
CPT/HCPCS: 36415; 82040; 82247; 82310; 82374; 82435; 82565; 82947; 84075; 84132; 84155; 84295; 84450; 84460; 84520

== ENCOUNTER → 2018-03-13 | Outpatient (CLI) | payer OTHER ==
[2018-01-02 10:17] VITALS: BMI 21.2
== END ==
LOC: LAB 13:50
PROVIDERS: ATTEND Internal Medicine Cardiovascular Disease
DX: E87.6 Hypokalemia (principal)
CPT/HCPCS: 36415; 82310; 82374; 82435; 82565; 82947; 84132; 84295; 84520

== ENCOUNTER → 2018-06-01 | Outpatient (CLI) | payer OTHER ==
[2018-01-02 10:17] VITALS: BMI 21.2
[2018-06-01 09:53] LABS: LDL CHOLESTEROL 77 mg/dl
== END ==
LOC: LAB 08:42
PROVIDERS: ATTEND Internal Medicine Cardiovascular Disease
DX: I25.10 Atherosclerotic heart disease of native coronary artery without angina pectoris (principal)
CPT/HCPCS: 36415; 82040; 82247; 82310; 82374; 82435; 82465; 82565; 82947; 83718; 84075; 84132; 84155; 84295; 84450; 84460; 84478; 84520

== ENCOUNTER → 2018-10-04 | Outpatient (CLI) | payer OTHER ==
[2018-01-02 10:17] VITALS: BMI 21.2
== END ==
LOC: LAB 07:56
PROVIDERS: ATTEND Internal Medicine Cardiovascular Disease
DX: I25.10 Atherosclerotic heart disease of native coronary artery without angina pectoris (principal); I10 Essential (primary) hypertension
CPT/HCPCS: 36415; 82040; 82247; 82310; 82374; 82435; 82565; 82947; 84075; 84132; 84155; 84295; 84450; 84460; 84520